=== PATIENT | female | born 1995 | race Caucasian/White ===

== ENCOUNTER 2016-11-27 22:09 | Inpatient (IN) | payer MEDICAID ==
[~2016-11-27] VITALS: Ht 167.6 cm; Wt 87.1 kg
[~2016-11-27 22:09] MED LIST: FLUO-1 PO; PREN29TA PO
[2016-11-27] MEDS ORDERED: LACTATED RINGER'S 1000 ML INJ 1,000 ML IV PRN (22:43)
[2016-11-27] MEDS ORDERED: CITRIC ACID-SODIUM CITRATE LIQ 30 ML UDC PO SCH (22:45)
[2016-11-27] MEDS ORDERED: LIDOCAINE HCL 1% 50 ML VIAL INFIL PRN (22:45)
[2016-11-27] MEDS ORDERED: MINERAL OIL 10 ML VIAL TOPICAL PRN (22:45)
[2016-11-27] MEDS ORDERED: PENICILLIN G POTASSIUM INJ 5,000,000 UNITS in SODIUM CHLORIDE 0.9% INJ 100 ML IV ONE (22:45)
[2016-11-27] MEDS ORDERED: SODIUM CHLORID 0.9% 500 ML INJ 500 ML IV PRN (22:45)
[2016-11-27] MEDS ORDERED: OXYTOCIN 30 UNITS-500ML PREMIX 500 ML IV ONE (22:45)
[2016-11-27] MEDS ORDERED: LIDOCAINE HCL 1% 50 ML VIAL I-DERMAL PRN (22:45)
[2016-11-27] MEDS ORDERED: SODIUM CHLOR 0.9% 1000 ML INJ 1,000 ML IV PRN (23:03)
[2016-11-27] MEDS: LACTATED RINGER'S 1000 ML INJ 1,000 ML IV SCH (23:15)
[2016-11-27 23:30] VITALS: RESP 18
[2016-11-27 23:45] LABS: BLOOD, URINE NEG (NEG); COMMENT (UR) CULT NOT INDICATED; CULTURE IF INDICATED CULT NOT INDICATED; GLUCOSE,URINE NEG (NEG); KETONE, URINE NEG (NEG); MUCUS URINE FEW /lpf (OCC); NITRITE,URINE NEG (NEG); SQUAMOUS EPITHELIAL CELL URINE <1 /hpf (0-5); URINE COLOR YELLOW (YELLW/STRAW)
--- NOTE | 2016-11-27 23:49 | HHI.HP ---
HPI Chief Complaint Contractions Date Seen: Nov 27, 2016 Time Seen: 11:15 (Kiana Wynn MD R1) Travel History International Travel<30 Days: No Contact w/Intl Traveler<30Days: No Known Affected Area: No (Kiana Wynn MD) History of Present Illness HPI Patient is a 21-year-old at 39/6 weeks gestation that presents to the [facility] ED with a chief complaint of contractions that began at 8:30 PM today. Patient states that she had 5-6 contractions a weight evenly spaced but she did not time the frequency. Her last OB appointment with Megan Solitario is at [facility] was on Wednesday11/24/16 and patient states that she's been having some discharge with blood spotting. She denies loss of fluid, foul- smelling discharge, or dysuria. Patient also denies right upper quadrant pain, chest pain, and shortness of breath. Patient states that she would prefer not to have an epidural because during her last , the epidural made her itchy for which she was given Benadryl which made her drowsy such that she does not remember much about that delivery. She wants to be alert and very well involved in this delivery. Of note, she is GBS positive. She is not allergic to penicillin. Para: 1 : 2 Miscarriage: 0 : 0 (Kiana Wynn MD) History Past Medical History Medical History: Denies Significant Hx (Kiana Wynn MD) Obstetric History Obstetric History (Kiana Wynn MD) Past Surgical History Narrative Surgical Tonsillectomy, right elbow fracture repair (Kiana Wynn MD) Family History Narrative Family History Mom-hypertension Grandmother-diabetes (Kiana Wynn MD) Social History Alcohol Use: No Tobacco Use: No Substance Abuse: No (Kiana Wynn MD) Allergies-Medications (Allergen,Severity, Reaction): Coded Allergies: No Known Allergies (Unverified , 11/24/16) Home Meds Reported Medications Vit-Iron Carbonyl ( Plus Iron 29-1 mg)1 Tab Tab1 Tab PO DAILY #30 TAB Ref 0 09/28/16 Fluoxetine (Prozac)10 Mg Cap10 Mg PO DAILY #30 CAP Ref 0 09/28/16 Review of Systems Except as stated in HPI: all other systems reviewed are Neg Eyes: No: Blurred Vision Cardiovascular: No: Chest Pain or Discomfort Respiratory: No: Cough Genitourinary: No: Dysuria Musculoskeletal: Edema (mild pedal edema) (EkoKiana MD R1) Physical Exam Narrative GENERAL: Well-nourished, well-developed patient. SKIN: Warm and dry. HEAD: Normocephalic and atraumatic. EYES: No scleral icterus. No injection or drainage. ENT: No nasal drainage noted. Mucous membranes pink. Airway patent. NECK: Supple, trachea midline. No JVD. CARDIOVASCULAR: Regular rate and rhythm without murmurs, gallops, or rubs. RESPIRATORY: Breath sounds equal bilaterally. No accessory muscle use. ABDOMEN/GI: Abdomen soft, non-tender, bowel sounds present, no rebound, no guarding Gravid to 39 weeks size Fundal Height: consistent with 39 weeks gestation GENITOURINARY: External Genitalia: intact and normal in appearance Cervix: Posterior Dilatation: 5 Effacement: 70% Station:-2 Presentation: Vertex Membranes: Intact Uterine Contractions: Present FHT's: Category: 1 Baseline: 145 Reactive: Up to 155 Variability: Moderate Decels: Absent EXTREMITIES: No cyanosis or edema. BACK: Nontender without obvious deformity. No CVA tenderness. NEUROLOGICAL: Awake and alert. Motor and sensory grossly within normal limits. Five out of 5 muscle strength in all muscle groups. Normal speech. (Kiana Wynn MD R1) Data Data Vital Signs Reviewed: Yes Orders Admit To Inpatient (11/27/16 ) Code Status (11/27/16 22:43) Vital Signs (Adult) .Per protocol (11/27/16 22:43) ^ Heart (11/27/16 22:43) ^ Amnioinfusion (11/27/16 22:43) Urinary Catheter Management .ONCE (11/27/16 22:43) Lactated Ringer's 1000 Ml Inj (Lr 1000 M (11/27/16 22:43) Lactated Ringer's 1000 Ml Inj (Lr 1000 M (11/27/16 22:43) Sodium Chlorid 0.9% 500 Ml Inj (Ns 500 M (11/27/16 22:45) Sodium Chlor 0.9% 1000 Ml Inj (Ns 1000 M (11/27/16 23:03) Lidocaine 1% Inj (50 Ml) (Xylocaine 1% I (11/27/16 22:45) Citric Acid-Sodium Citrate Liq (Bicitra (11/27/16 22:45) Fentanyl Inj (Fentanyl Inj) (11/27/16 22:45) Fentanyl Inj (Fentanyl Inj) (11/27/16 22:45) Penicillin G Potassium Inj (Pfizerpen-G (11/27/16 22:45) Penicillin G Potassium Inj (Pfizerpen-G (11/28/16 02:45) Complete Blood Count With Diff (11/27/16 22:43) Hold Clot (11/27/16 22:43) Abo/Rh Blood Type (11/27/16 22:43) Urinalysis - C+S If Indicated (11/27/16 22:43) Resp Oxygen Non Rebreathe Mask (11/27/16 ) ^ Epidural / Intrathecal Infus (11/27/16 22:43) Oxytocin 30 Units-500ml Premix (Pitocin (11/27/16 22:45) Lidocaine 1% Inj (50 Ml) (Xylocaine 1% I (11/27/16 22:45) Light Mineral Oil (Muri-Lube Oil) (11/27/16 22:45) Inpatient Certification (11/27/16 ) Ob (2e) Additional Admit Info (11/27/16 22:49) (Kiana Wynn MD R1) Assessment/Plan Problem List: (1) Intrauterine (2) Labor without complication Assessment and Plan 21-year-old at 39/6 weeks gestation presents in active labor. Membranes intact. GBS positive. -Admit to labor and delivery -FHT's reassuring -Continuous monitoring -Epidural if patient requests -GBS positive - will start Penicillin prophylaxis -Anticipate vaginal delivery Seen and discussed with Dr. Aguilera Discussed with Dr. Jarrell Discharge Planning Anticipate in 2-3 days (iKana Wynn MD R1) Attending Attestation Patient seen and evaluated with resident under direct supervision, agree with assessment and plan. (Gm Jarrell MD) Kiana Wynn MD R1 Nov 27, 2016 23:49 Gm Jarrell MD Nov 29, 2016 13:34
[2016-11-27 23:50] LABS: BASOPHIL % 0.2 % (0.0-2.0); EOSINOPHIL # 0.1 TH/MM3 (0-0.4); EOSINOPHIL % 0.4 % (0.0-4.0); HEMATOCRIT 37.5 % (35.0-46.0); HEMO FLAGS DIFF FINAL; LYMPH % 16.3 % (9.0-44.0); LYMPHOCYTE # 2.4 TH/MM3 (1.0-4.8); MEAN CELL VOLUME 96.6 FL (80.0-100.0); MEAN CORPUSCULAR HEMOGLOBIN 32.7 PG (27.0-34.0); MEAN CORPUSCULAR HGB CONC 33.9 % (32.0-36.0); MONO % 8.7 % (0.0-8.0); NEUT % 74.4 % (16.0-70.0); PLATELET COUNT 207 TH/MM3 (150-450); RED BLOOD COUNT 3.88 MIL/MM3 (4.00-5.30); RED CELL DISTRIBUTION WIDTH 12.6 % (11.6-17.2); WHITE BLOOD COUNT 14.7 TH/MM3 (4.0-11.0)
[2016-11-28] VITALS (22 sets, daily range): BP systolic 102–139; BP diastolic 52–82; PULSE 69–85; RESP 18; TEMP 98.2
--- NOTE | 2016-11-28 01:16 | PD.LABORPN ---
Subjective Subjective Pt is doing well. Feeling contractions. heart tone- category 1 tracing, reactive up to180. No decelerations. (Kiana Wynn MD R1) Objective Vital Signs Vital Signs Date Time Temp Pulse Resp B/P Pulse Ox O2 Delivery O2 Flow Rate FiO2 11/28/16 00:30 18 11/27/16 23:30 18 Objective Pelvic Exam: Cervix: Posterior Dilatation: 5 Effacement: 70% Station: -2 Presentation: Vertex Membranes: Intact Uterine Contractions: Present FHT's: Category: 1 Baseline: 160 Reactive: Up to 180 Variability: Moderate Decels: None (Kiana Wynn MD R1) Assessment/Plan Problem List: (1) Intrauterine (2) Labor without complication Assessment and Plan 21-year-old at 39/6 weeks gestation presents in active labor. Membranes intact. GBS positive. -No contractions on monitor, however pt feels contractions -FHT's reassuring -Continuous monitoring - monitor closely due to tachycardia to 180 -Plan to rupture after 2nd dose of Penicillin -Consider pitocin to augment labor after 2nd dose of penicillin -Epidural if patient requests -GBS positive - on Penicillin prophylaxis -Anticipate vaginal delivery Seen and discussed with Dr. Aguilera (Kiana Wynn MD R1) Assessment and Plan Patient seen and evaluated with resident under direct supervision, agree with assessment and plan. (Gm Jarrell MD) Kiana Wynn MD R1 Nov 28, 2016 01:16 Gm Jarrell MD Nov 29, 2016 13:35
[2016-11-28] MEDS: PENICILLIN G POTASSIUM INJ 2,500,000 UNITS in SODIUM CHLORIDE 0.9% INJ 100 ML IV SCH ×2 (03:15→07:45)
[2016-11-28] MEDS ORDERED: fentaNYL 2MCG-BUPIV 0.125% INJ 100 ML ONE (05:13)
[2016-11-28] MEDS ORDERED: ePHEDrine/NS 50 MG/5 ML SYR ONE (05:26)
[2016-11-28] MEDS ORDERED: BUPIVACAINE HCL PF 0.25% 10 ML VIAL ONE (05:26)
[2016-11-28] MEDS ORDERED: ePHEDrine/NS 50 MG/5 ML SYR IV PRN (06:00)
[2016-11-28] MEDS ORDERED: fentaNYL 2MCG-BUPIV 0.125% INJ 100 ML EPIDURAL SCH (06:00)
[2016-11-28] MEDS ORDERED: NO SYSTEM NARCOTICS XX PRN (06:00)
[2016-11-28] MEDS ORDERED: DO NOT ADMINISTER ANTICOAGULANTS XX PRN (06:00)
--- NOTE | 2016-11-28 08:14 | PD.LABORPN ---
Subjective Subjective Doing well, resting in bed. Pain well controlled. Has epidural. Making small progress overnight, now 8 cm dilated. Artificial rupture of membranes performed. (Aleksander Aguilera MD R2) Objective Vital Signs Vital Signs Date Time Temp Pulse Resp B/P Pulse Ox O2 Delivery O2 Flow Rate FiO2 11/28/16 07:05 85 11/28/16 07:00 82 102/52 11/28/16 07:00 82 11/28/16 06:20 76 11/28/16 06:15 82 128/64 11/28/16 06:15 70 11/28/16 06:00 75 11/28/16 06:00 81 122/67 11/28/16 05:55 72 132/69 11/28/16 05:55 74 11/28/16 05:53 98.2 18 11/28/16 05:50 73 130/60 11/28/16 05:50 75 11/28/16 05:47 69 123/67 11/28/16 05:45 71 11/28/16 05:41 74 139/76 11/28/16 05:40 77 11/28/16 05:39 74 139/72 11/28/16 05:35 79 11/28/16 05:33 18 11/28/16 05:31 82 131/82 11/28/16 05:30 79 11/28/16 05:00 18 11/28/16 04:00 18 11/28/16 01:30 18 11/28/16 00:30 18 Objective Pelvic Exam: Cervix: [-] Dilatation: 8 cm Effacement: 90% Station: -1 Presentation: vertex Membranes: AROM performed Uterine Contractions: Irregular, poor shredder picker on monitor FHT's: Category: 1 Baseline: 140's Reactive: yes Variability: moderate Decels: no (Aleksander Aguilera MD R2) Assessment/Plan Problem List: (1) Intrauterine (2) Labor without complication Assessment and Plan 21-year-old at 39/6 weeks gestation presents in active labor. Membranes now ruptured. GBS positive. -Regular contractions -Continuous monitoring -GBS positive, adequately treated with Penicillin, >4 hrs dosing. -Epidural in place -Anticipate vaginal delivery (Aleksander Aguilera MD R2) Assessment and Plan Patient seen and evaluated with resident under direct supervision, agree with assessment and plan. (NickGm todd Michael L MD R2 Nov 28, 2016 08:14 Gm Jarrell MD Nov 29, 2016 13:36
[2016-11-28] MEDS ORDERED: ONDANSETRON HCL 4 MG/2 ML VIAL ONE (10:24)
[2016-11-28] MEDS: LACTATED RINGER'S 1000 ML INJ 1,000 ML IV SCH (10:29)
[2016-11-28] MEDS ORDERED: OXYTOCIN 30 UNITS-500ML PREMIX 500 ML ONE (12:12)
[2016-11-28] MEDS ORDERED: SODIUM CHLORIDE 0.9% FLUSH 5 ML FLUSH IV PRN (12:45)
[2016-11-28] MEDS ORDERED: WITCH HAZEL 50%/GLYCERIN 12.5% 40 PAD JAR TOPICAL PRN (12:45)
[2016-11-28] MEDS ORDERED: ACETAMINOPHEN 325 MG TAB PO PRN (12:45)
[2016-11-28] MEDS ORDERED: ONDANSETRON ODT 4 MG TAB PO PRN (12:45)
[2016-11-28] MEDS ORDERED: DOCUSATE SODIUM 50 MG/SENNA 8.6 MG TAB PO PRN (12:45)
[2016-11-28] MEDS ORDERED: ZOLPIDEM TARTRATE 5 MG TAB PO PRN (12:45)
[2016-11-28] MEDS ORDERED: ALUMINUM/MAGNESIUM/SIMETH 30 ML CUP PO PRN (12:45)
[2016-11-28] MEDS ORDERED: BENZOCAINE 20% TOPICAL SPRAY 60 ML CAN TOPICAL PRN (12:45)
--- NOTE | 2016-11-28 12:45 | PD.OB.DELI ---
Delivery Date: Nov 28, 2016 Anesthesia: Epidural Episiotomy: None Vaginal Delivery: Normal Presentation: Occiput anterior Nuchal Cord: None (cord around foot) Infant: Female One Minute : 8 Five Minute : 9 Weight: 3675g Care: Suctioned, Spontaneous crying, Responded to stimulation Placenta: Spontaneous delivery, Intact, 3 vessel cord Laceration: 1 deg (bilateral periurethral region) Additional Information EBL 250cc Supervised by Dr. Hernandez (Feal Jasso MD R2) Delivery Date: Nov 28, 2016 (Loc Hernandez MD) Attestation Delivery performed with the resident under direct supervision, I agree with the delivery notes as written. (Loc Hernandez MD) Fela Jasso MD R2 Nov 28, 2016 12:45 Loc Hernandez MD Nov 28, 2016 14:39
[2016-11-28] MEDS: IBUPROFEN 600 MG TAB PO PRN (13:46)
[2016-11-28] MEDS ORDERED: DIPHTH/TETANUS/ACEL PERTUSSIS (BOOSTER) 0.5 ML VIAL/PFS IM ONE (16:00)
[2016-11-28] MEDS ORDERED: MEASLES, MUMPS, RUBELLA VACCINE 0.5 ML VIAL SQ ONE (16:00)
[2016-11-28] MEDS ORDERED: SODIUM CHLORIDE 0.9% FLUSH 5 ML FLUSH IV SCH (21:00)
[2016-11-29] MEDS: IBUPROFEN 600 MG TAB PO PRN ×4 (01:39→20:14)
--- NOTE | 2016-11-29 08:25 | HHI.OB ---
Subjective Post Day: 1 Remarks Pt seen and examined this morning. day # 1 AFVSS overnight. Decreased lochia. Denies dysuria. No breast tenderness. She is feeding the baby via breast and bottle. Appetite good. No nausea or vomiting. Patient has not yet had a bowel movement. +flatus. Ambulating well. Denies calf pain or shortness of breath. Otherwise, she is doing well this morning and has no other concerns. (Davey Parkinson MD R2) Objective Vitals/I&O Vital Signs Date Time Temp Pulse Resp B/P Pulse Ox O2 Delivery O2 Flow Rate FiO2 11/28/16 15:39 18 Objective Remarks GENERAL: Well-nourished, well-developed patient. CARDIOVASCULAR: Regular rate and rhythm without murmurs, gallops, or rubs. RESPIRATORY: Breath sounds equal bilaterally. No accessory muscle use. ABDOMEN/GI: Abdomen soft, non-tender. Fundus: Firm, non-tender at umbilicus. GENITOURINARY: Light to moderate bleeding. EXTREMITIES: No cyanosis or edema, non-tender, without signs of DVT. Medications and IVs Current Medications Medications (Trade) Dose Ordered Sig/Sly Route Start Time Stop Time Status Last Admin (NS Flush) 2 ml BID IV 11/28/16 21:00 (NS Flush) 2 ml UNSCH PRN IV 11/28/16 12:45 (Tylenol) 650 mg Q4H PRN PO 11/28/16 12:45 (Motrin) 600 mg Q6H PRN PO 11/28/16 12:45 11/29/16 01:39 (Americaine 20% Top Spr) 1 spray Q4H PRN TOPICAL 11/28/16 12:45 11/28/16 16:14 (Tucks Pads) 1 applic QID PRN TOPICAL 11/28/16 12:45 11/28/16 16:14 (Dianne-Colace) 2 tab Q12H PRN PO 11/28/16 12:45 (Ambien) 5 mg HS PRN PO 11/28/16 12:45 (Mag-Al Plus Susp Liq) 15 ml Q8H PRN PO 11/28/16 12:45 (Zofran Odt) 4 mg Q6H PRN PO 11/28/16 12:45 (Davey Parkinson MD R2) Assessment/Plan Problem List: (1) Labor without complication (2) Normal vaginal delivery Assessment and Plan 21y/o female who is PPD# 1 s/p . -Continue routine care. -Percocet and Motrin PRN pain. -Encouraged OOB. Advised pelvic rest for 6 wks. -Re: ctrl, she would like OCP, Ortho-Micronor sent to patient's pharmacy. -Anticipate discharge tomorrow. niko Skelton MD Discharge Planning Anticipate discharge tomorrow (Davey Parkinson MD R2) Attending Attestation Patient seen and evaluated with resident under direct supervision, agree with assessment and plan. (Gm Jarrell MD) Davey Parkinson MD R2 Nov 29, 2016 08:25 Gm Jarrell MD Nov 30, 2016 10:03
[2016-11-29] MEDS ORDERED: ORTH0.35 PO (09:03)
--- NOTE | 2016-11-30 04:36 | HHI.DCPOC ---
Discharge Care Plan Diagnosis: (1) Normal vaginal delivery Report Symptoms to Your Doctor -Temperate above 100.5 degrees -Redness, of incision or excessive or foul smelling drainage -Unusual pain or calf pain -Increased vaginal bleeding -Painful or difficulty urinating -Feelings of extreme sadness or anxiety after 2 weeks Goals to Promote Your Health * To prevent worsening of your condition and complications * To maintain your health at the optimal level Directions to Meet Your Goals Take your medications as prescribed Follow your dietary instruction Follow activity as directed Ensure plenty of rest for recovery Drink fluids for hydration Keep your appointments as scheduled Take your immunizations and boosters as scheduled If your symptoms worsen call your PCP, if no PCP go to Urgent Care Center or Emergency Room Smoking is Dangerous to Your Health. Avoid second hand smoke Call the 24-hour crisis hotline for domestic abuse at Casey Rosas MD R1 Nov 30, 2016 04:36 Gm Jarrell MD Nov 30, 2016 09:58
[2016-11-30] MEDS ORDERED: SENN1TAB PO (04:37)
[2016-11-30] MEDS ORDERED: IBUP-232 PO (04:37)
--- NOTE | 2016-11-30 07:22 | HHI.OB ---
Subjective Post Day: 2 Remarks Pt seen and examined this morning. day # 2 AFVSS overnight. Decreased lochia. Denies dysuria. No breast tenderness. She is feeding the baby via breast. Appetite good. No nausea or vomiting. Patient has not yet had a bowel movement, but is passing gas. Ambulating well. Denies calf pain or shortness of breath. Otherwise, she is doing well this morning and has no other concerns. (Casey Rosas MD R1) Objective Objective Remarks GENERAL: Well-nourished, well-developed patient. CARDIOVASCULAR: Regular rate and rhythm without murmurs, gallops, or rubs. RESPIRATORY: Breath sounds equal bilaterally. No accessory muscle use. ABDOMEN/GI: Abdomen soft, non-tender. Fundus: Firm, non-tender at umbilicus. GENITOURINARY: Light to moderate bleeding. EXTREMITIES: No cyanosis or edema, non-tender, without signs of DVT. Medications and IVs Current Medications Medications (Trade) Dose Ordered Sig/Sly Route Start Time Stop Time Status Last Admin (NS Flush) 2 ml BID IV 11/28/16 21:00 (NS Flush) 2 ml UNSCH PRN IV 11/28/16 12:45 (Tylenol) 650 mg Q4H PRN PO 11/28/16 12:45 (Motrin) 600 mg Q6H PRN PO 11/28/16 12:45 11/29/16 20:14 (Americaine 20% Top Spr) 1 spray Q4H PRN TOPICAL 11/28/16 12:45 11/28/16 16:14 (Tucks Pads) 1 applic QID PRN TOPICAL 11/28/16 12:45 11/28/16 16:14 (Dianne-Colace) 2 tab Q12H PRN PO 11/28/16 12:45 (Ambien) 5 mg HS PRN PO 11/28/16 12:45 (Mag-Al Plus Susp Liq) 15 ml Q8H PRN PO 11/28/16 12:45 (Zofran Odt) 4 mg Q6H PRN PO 11/28/16 12:45 (Casey Rosas MD R1) Assessment/Plan Problem List: (1) Labor without complication (2) Normal vaginal delivery Assessment and Plan 21y/o female who is PPD# 2 s/p . -Continue routine care. -Tylenol and Motrin PRN pain. -Encouraged OOB. Advised pelvic rest for 6 wks and follow up with OBGYN at that time. -Re: ctrl, she would like OCP, Ortho-Micronor sent to patient's pharmacy. -Anticipate discharge today. DW: Dr. Jarrell and Dr. Nirav Parkinson Discharge Planning Anticipate discharge today (Casey Rosas MD R1) Attending Attestation Patient seen and evaluated with resident under direct supervision, agree with assessment and plan. (Gm Jarrell MD) Casey Rosas MD R1 Nov 30, 2016 07:21 Gm Jarrell MD Nov 30, 2016 09:59
[2016-11-30] MEDS: IBUPROFEN 600 MG TAB PO PRN (08:10)
== END 2016-11-30 12:33 | disposition home or self-care (01) | DRG 775 ==
LOC: HOBED 22:09 → H2EB 22:49 → H1EA 11-28 15:21
PROVIDERS: ADMIT Obstetrics & Gynecology; ATTEND Obstetrics & Gynecology
PROC: 10E0XZZ Delivery of Products of Conception, External Approach (ICD-10-PCS; principal; 2016-11-28)
PROC: 10907ZC Drainage of Amniotic Fluid, Therapeutic from Products of Conception, Via Natural or Artificial Opening (ICD-10-PCS; 2016-11-28)
PROC: 3E0S3CZ (ICD-10-PCS; 2016-11-28)
PROC: 00HU33Z Insertion of Infusion Device into Spinal Canal, Percutaneous Approach (ICD-10-PCS; 2016-11-28)
DX: O99.824 Streptococcus B carrier state complicating childbirth (principal); O76 Abnormality in fetal heart rate and rhythm complicating labor and delivery; O70.0 First degree perineal laceration during delivery; Z37.0 Single live birth; Z3A.39 39 weeks gestation of pregnancy
CPT/HCPCS: 81001; 85025; 86900; 86901; 90715; 99285; J2405; J2540; J2590; J7120

== ENCOUNTER 2017-11-23 15:06 | Emergency (ER) | payer MEDICAID, OTHER ==
[~2017-11-23 15:06] MED LIST changes: -FLUO-1 PO; -PREN29TA PO; +SPRI28TA PO
[2017-11-23 15:11] VITALS: BP 123/65; TEMP 100.9; O2SAT 100
--- NOTE | 2017-11-23 15:12 | PD ---
HPI Chief Complaint: flu symptoms Time Seen by Provider: 15:08 Travel History International Travel<30 days: No Contact w/Intl Traveler<30days: No History of Present Illness HPI 22-year-old approximate 8 week old by at-home test female presents to the ED for evaluation of less than 24-hour history of headaches, sinus congestion, clear rhinorrhea, nonproductive cough, body aches, fevers, chills. She denies sore throat, nausea. She states the symptoms onset gradually. She treated last night with OTC cold medications. No treatment today. Patient's infant daughter is sick as well. Patient states that she did receive a flu shot this year. PFSH Social History Alcohol Use: No Tobacco Use: No Allergies-Medications (Allergen,Severity, Reaction): Coded Allergies: No Known Allergies (Unverified , 09/01/17) Reported Meds & Prescriptions Reported Meds & Active Scripts Active Tamiflu (Oseltamivir Phosphate) 75 Mg Cap 75 Mg PO BID 5 Days Review of Systems Except as stated in HPI: all other systems reviewed are Neg Physical Exam Narrative GENERAL: Well-nourished, well-developed ill-appearing white female in no acute distress. SKIN: Focused skin assessment warm/dry. HEAD: Normocephalic. EYES: No scleral icterus. No injection or drainage. ENT: Pearly melton tympanic membranes with bilateral serous effusion. Nasal mucosa moist. Oropharynx with mild posterior oropharyngeal erythema. No edema. No exudates. Uvula midline. Airway patent. NECK: Supple, trachea midline. No JVD or lymphadenopathy. CARDIOVASCULAR: Regular rate and rhythm without murmurs, gallops, or rubs. RESPIRATORY: Breath sounds clear and equal bilaterally. No accessory muscle use. GASTROINTESTINAL: Abdomen soft, non-tender, nondistended. MUSCULOSKELETAL: No cyanosis, or edema. BACK: Nontender without obvious deformity. No CVA tenderness. Data Data Last Documented VS Vital Signs Date Time Temp Pulse Resp B/P (MAP) Pulse Ox O2 Delivery O2 Flow Rate FiO2 11/23/17 15:11 100.9 102 20 123/65 (84) 100 Orders Orders Acetaminophen (Tylenol) (11/23/17 15:15) ^ Insert Iv (11/23/17 15:13) Sodium Chlor 0.9% 1000 Ml Inj (Ns 1000 M (1/9/18 15:15) MDM Medical Decision Making Medical Screen Exam Complete: Yes Emergency Medical Condition: Yes Differential Diagnosis Influenza versus viral syndrome versus sinusitis versus other Narrative Course 22-year-old approximate 8 week old by at-home test female presents to the ED for evaluation of less than 24-hour history of headaches, sinus congestion, clear rhinorrhea, nonproductive cough, body aches, fevers, chills. She denies sore throat, nausea. She states the symptoms onset gradually. She treated last night with OTC cold medications. No treatment today. Patient's daughter is sick as well. Patient states that she did receive a flu shot this year. Temp 100.9. Pulse 102 on presentation. On exam the patient is ill-appearing and has bilateral serous effusions but the exam is otherwise unremarkable. Patient's infant child tested positive for the flu. He was administered 500 mg Tylenol by mouth. I offered her IV and fluids which she refused. She is prescribed Tamiflu twice a day 5 days. She was counseled on the proper administration of Tamiflu as well as the need to treat symptomatically with OTC medications. She is instructed to follow-up with her SPORTS MARKETING COORDINATOR, return for worsening symptoms. She indicated understanding of instructions and is agreeable to the care plan. She is stable and discharged home. Diagnosis Primary Impression: Influenza A Referrals: [facility] Patient Instructions: First Trimester (ED), Influenza (ED) Additional Instructions: Rest, hydrate. Push fluids such as sports drinks, Pedialyte, popsicles, clear broth. Take Tamiflu as prescribed. Continue with symptomatic treatment with OTC medications as well. Alternating Motrin and Tylenol every 4-6 hours as needed for continued fever. Increase handwashing frequently to avoid the spread of the virus to other family members and the community. Disinfect commonly touched surfaces such as light switches, microwaves, remote controls. Replace toothbrush at the end of this illness. Follow-up with the prosthetic aides teacher or PCP this week. Return to the ED for any urgent or emergent medical condition. Med/Other Pt SpecificInfo: Prescription(s) given Scripts Oseltamivir (Tamiflu) 75 Mg Cap 75 MG PO BID for Mgmt Viral Infection for 5 Days, #10 CAP 0 Refills Prov: Jenny Martines MD 11/23/17 Disposition: 01 DISCHARGE HOME Condition: Stable Aicha Frederick Nov 23, 2017 15:12
[2017-11-23] MEDS ORDERED: OSEL75 PO (15:15)
[2017-11-23] MEDS ORDERED: SODIUM CHLOR 0.9% 1000 ML INJ 1,000 ML IV ONE (15:15)
[2017-11-23] MEDS ORDERED: ACETAMINOPHEN 325 MG TAB PO ONE (15:15)
[2017-11-25] MEDS ORDERED: ONDA8TAB8 SL (15:00)
== END 2017-11-23 15:40 | disposition home or self-care (01) ==
LOC: NEPA 15:06
DX: O99.511 Diseases of the respiratory system complicating pregnancy, first trimester (principal); J10.1 Influenza due to other identified influenza virus with other respiratory manifestations; Z3A.08 8 weeks gestation of pregnancy
CPT/HCPCS: 99283